=== PATIENT | female | born 1975 | race Caucasian/White ===

== ENCOUNTER 2017-07-13 07:57 | Emergency (ER) | payer OTHER ==
[~2017-07-13] VITALS: Ht 157.5 cm; Wt 74.6 kg
[2017-07-13 08:03] VITALS: BP 115/41
[2017-07-13] MEDS ORDERED: oxymetazoline 15 ML nasal spray NS ONE (08:35)
[2017-07-13] MEDS ORDERED: AMOX500C2 PO (08:35)
== END 2017-07-13 11:08 | disposition home or self-care (01) ==
LOC: ER 07:59
DX: T17.1XXA Foreign body in nostril, initial encounter (principal); H92.02 Otalgia, left ear; Y93.89 Activity, other specified; Y92.89 Other specified places as the place of occurrence of the external cause; Y99.8 Other external cause status
CPT/HCPCS: 70210; 99284